=== PATIENT | male | born 2005 ===

== ENCOUNTER → 2025-03-22 09:00 | Outpatient (REF) | payer OTHER, SELFPAY ==
--- NOTE | 2025-03-22 | HM_ITS ---
* Total monitoring time 3 days. * Underlying rhythm is sinus with an average rate of 72/Min. * No significant ectopy, tachy or bradyarrhythmias. * Patient markers associated with sinus tachycardia. * No diary events. MTDD
== END ==
LOC: HO.CARD 09:00
PROVIDERS: Visit Provider Emergency Medicine
DX: R42 Dizziness and giddiness (principal)
CPT/HCPCS: 93242

== ENCOUNTER → 2025-03-22 09:00 | Outpatient (BNV) | payer OTHER, SELFPAY | PROVIDERS: Visit Provider Internal Medicine | DX: R42 Dizziness and giddiness (principal); R00.0 Tachycardia, unspecified | CPT/HCPCS: 93244 ==